=== PATIENT | female | born 1945 | race Caucasian/White ===

== ENCOUNTER 2019-06-05 04:06 | Emergency (ER) | payer OTHER ==
[~2019-06-05] VITALS: Ht 160 cm; Wt 61.7 kg
[2019-06-05 04:06] VITALS: BP 168/84
--- NOTE | 2019-06-05 04:16 | NUR ---
PT TO BED #8
--- NOTE | 2019-06-05 04:18 | NUR ---
73 YEAR OLD FEMALE BIBA FROM HOME, PER EMS PATIENT CALLED FOR ANXIETY, RINGING INTO EARS, AND DIZZYNESS. EMS STATED THEY DID NOT GIVE MEDICATIONS IN TRANSIT. UPON ARRIVAL PATIENT STATES THAT SHE NO LONGER FEELS PRIOR COMPLAINTS, AND FEELS NORMAL. PATIENT AOX4, BREATHING EVEN AND UNLABORED, SKIN WARM AND DRY. BED IN LOWEST POSITION, LOCKED, BED RAIL UPX1. BP 162/71, HR 70, SPO2 95%, RR 12. PMH - HTN, TX, HYPOTHYROIDISM MEDS - STATIN, LEVO, ASA, METOPROLOL ALLERGIES - PCN
[2019-06-05 05:11] VITALS: BP 172/80
--- NOTE | 2019-06-05 05:11 | NUR ---
DISCHARGE DONE BY DR ESCOBAR. Patient discharged with v/s stable. Written and verbal after care instructions ABOUT HYPERTENSION given and explained. Patient alert, oriented and verbalized understanding of instructions. Ambulatory with steady gait. All questions addressed prior to discharge. ID band removed. Patient advised to follow up with PMD. Rx of LISINOPRIL given. Patient educated on indication of medication including possible reaction and side effects. Opportunity to ask questions provided and answered.
== END 2019-06-05 05:11 | disposition home or self-care (01) ==
LOC: MED 04:06
DX: R42 Dizziness and giddiness (principal); I10 Essential (primary) hypertension; E07.9 Disorder of thyroid, unspecified
CPT/HCPCS: 99283

== ENCOUNTER 2022-06-08 20:04 | Emergency (ER) | payer OTHER ==
[~2022-06-08] VITALS: Ht 152.4 cm; Wt 53.5 kg
[2022-06-08 20:04] VITALS: BP 154/68
--- NOTE | 2022-06-08 20:08 | NUR ---
PT [facility] BED 6
--- NOTE | 2022-06-08 20:21 | NUR ---
Dr. Doll examining patient.
--- NOTE | 2022-06-08 20:30 | NUR ---
Patient resting in bed, A/Ox4, chest rise and fall symmetrical, no c/o pain or s/s of distress, patient on monitor.
[2022-06-08 21:18] LABS: BASOPHILS % (AUTO) 0.3 % (0.0-2.0); EOSINOPHILS # (AUTO) 0.1 K/uL (0-0.4); HEMATOCRIT 35.3 % (36-48); HEMOGLOBIN 12.1 g/dL (12.0-16.0); LYMPHOCYTES % (AUTO) 8.8 % (20.5-51.1); MEAN CORPUSCULAR HEMOGLOBIN 30 pg (27-31); MEAN CORPUSCULAR HGB CONC 34 g/dL (33-37); MEAN CORPUSCULAR VOLUME 88.2 fL (80-94); MONOCYTES # (AUTO) 0.8 K/uL (0.8-1.0); MONOCYTES % (AUTO) 7.7 % (1.7-9.3); NEUTROPHILS # (AUTO) 9.1 K/uL (1.8-7.7); NEUTROPHILS % (AUTO) 82.2 % (42.2-75.2); PLATELET COUNT (AUTO) 247 K/uL (140-450); RED CELL DISTRIBUTION WIDTH 12.7 % (11.6-13.7)
[2022-06-08 21:35] LABS: ANION GAP 13.4 (8-16); CARBON DIOXIDE 28.5 mmol/L (21-32); CHLORIDE 87 mmol/L (98-107); CREATININE 0.6 mg/dL (0.6-1.3); GLUCOSE 128 mg/dL (74-106); SODIUM SERUM 126 mmol/L (136-145); UREA NITROGEN, BLOOD 10 mg/dL (7-18)
[2022-06-08 21:49] LABS: MAGNESIUM 1.7 mg/dL (1.8-2.4); THYROID STIMULATING HORMONE 3.84 uIU/mL (0.34-3.74)
[2022-06-08 22:00] LABS: POTASSIUM 2.9 mmol/L (3.5-5.1)
--- NOTE | 2022-06-08 22:00 | NUR ---
Patient resting in bed, A/Ox4, chest rise and fall symmetrical, no c/o pain or s/s of distress, patient on monitor.
[2022-06-08] MEDS ORDERED: POTA10TA70 PO (22:05)
[2022-06-08] MEDS: POTASSIUM CHLORIDE 10 MEQ TABER PO ONE (22:14)
[2022-06-08] MEDS: MAGNESIUM OXIDE 400 MG TAB PO ONE (22:14)
[2022-06-08 22:30] VITALS: BP 133/71
== END 2022-06-08 22:31 | disposition home or self-care (01) ==
LOC: MED 20:04
DX: R00.2 Palpitations (principal); E87.6 Hypokalemia; E83.42 Hypomagnesemia; I10 Essential (primary) hypertension; E03.9 Hypothyroidism, unspecified; Z79.899 Other long term (current) drug therapy
CPT/HCPCS: 36415; 80048; 83735; 84443; 85025; 93005; 99284

== ENCOUNTER 2022-06-21 12:46 | Emergency (ER) | payer OTHER ==
[~2022-06-21] VITALS: Ht 152.4 cm; Wt 53.5 kg
[~2022-06-21 12:46] MED LIST: POTA10TA70 PO
--- NOTE | 2022-06-21 12:49 | NUR ---
PATIENT BIBA TO BED 7.
[2022-06-21 12:56] VITALS: BP 136/90
--- NOTE | 2022-06-21 13:35 | NUR ---
ASSUMED PATIENT CARE, NURSING ASSESSMENT COMPLETED.
[2022-06-21 14:39] LABS: BASOPHILS % (AUTO) 0.6 % (0.0-2.0); EOSINOPHILS # (AUTO) 0.1 K/uL (0-0.4); EOSINOPHILS % (AUTO) 1.3 % (0.0-4.0); HEMATOCRIT 36.9 % (36-48); HEMOGLOBIN 12.6 g/dL (12.0-16.0); LYMPHOCYTES # (AUTO) 1.1 K/uL (2.5-16.5); LYMPHOCYTES % (AUTO) 14.8 % (20.5-51.1); MEAN CORPUSCULAR HEMOGLOBIN 31 pg (27-31); MEAN CORPUSCULAR HGB CONC 34 g/dL (33-37); MEAN CORPUSCULAR VOLUME 89.6 fL (80-94); MONOCYTES # (AUTO) 0.7 K/uL (0.8-1.0); NEUTROPHILS # (AUTO) 5.3 K/uL (1.8-7.7); NEUTROPHILS % (AUTO) 73.3 % (42.2-75.2); PLATELET COUNT (AUTO) 294 K/uL (140-450); RED BLOOD CELL COUNT(AUTO) 4.11 MIL/uL (4.20-5.40); RED CELL DISTRIBUTION WIDTH 12.8 % (11.6-13.7); WHITE BLOOD COUNT (AUTO) 7.3 K/uL (4.8-10.8)
[2022-06-21 14:58] LABS: ANION GAP 4.6 (8-16); CARBON DIOXIDE 31.4 mmol/L (21-32); CHLORIDE 97 mmol/L (98-107); CREATININE 0.8 mg/dL (0.6-1.3); GLUCOSE 101 mg/dL (74-106); SODIUM SERUM 129 mmol/L (136-145); UREA NITROGEN, BLOOD 21 mg/dL (7-18)
--- NOTE | 2022-06-21 16:45 | NUR ---
AWAITING SECOND SET OF TROPONIN BEFORE PATIENT CAN BE DISCHARGED. PATIENT UPDATED ACCORDINGLY.
--- NOTE | 2022-06-21 17:50 | NUR ---
SECOND TROPONIN IS WNL, DR FINK AWARE, PER MD OK TO GO AHEAD DISCHARGE PATIENT.
--- NOTE | 2022-06-21 17:51 | NUR ---
DISPO AND MEDICAL DECISION MAKING, DC HOME WITH AFTERCARE INSTRUCTIONS, AND ADVISEMENT FOR FOLLOW UP WITH PMD. ALL INSTRUCTIONS UNDERSTOOD BY PATIENT WELL, VS WNL, DENIES PALPIATIONS, DENIES CP. DC HOME AMBULATORY, ACCOMPANIED BY NEIGHBOR.
[2022-06-21 17:53] VITALS: BP 118/50
== END 2022-06-21 18:42 | disposition home or self-care (01) ==
LOC: MED 12:46
DX: R00.2 Palpitations (principal); I10 Essential (primary) hypertension; I25.10 Atherosclerotic heart disease of native coronary artery without angina pectoris; Z79.899 Other long term (current) drug therapy
CPT/HCPCS: 36415; 71045; 80048; 84484; 85025; 99285; Q0092

== ENCOUNTER 2022-06-26 20:40 | Emergency (ER) | payer OTHER ==
[~2022-06-26] VITALS: Ht 157.5 cm; Wt 52.2 kg
--- NOTE | 2022-06-26 20:42 | NUR ---
BIBA TO BED #11
[2022-06-26 20:53] VITALS: BP 165/90
--- NOTE | 2022-06-26 21:06 | NUR ---
PATIENT WITH COMPLAINTS OF ELEVATED BLOOD PRESSUR AND HEART RATE. HAS HISTORY OF HTN, FREQUENT ER VISITS, AND SVT. PATIENT REPORTS THAT SHE MAY HAVE STRESS DX: HTN
--- NOTE | 2022-06-26 21:55 | NUR ---
Patient discharged with v/s stable. Written and verbal after care instructions given and explained. Patient verbalized understanding. Ambulatory with steady gait. All questions addressed prior to discharge. Advised to follow up with PMD.
== END 2022-06-26 21:55 | disposition home or self-care (01) ==
LOC: MED 20:40
DX: I10 Essential (primary) hypertension (principal); I25.10 Atherosclerotic heart disease of native coronary artery without angina pectoris; E03.9 Hypothyroidism, unspecified; Z79.899 Other long term (current) drug therapy
CPT/HCPCS: 99283

== ENCOUNTER 2023-02-09 06:45 | Emergency (ER) | payer OTHER ==
[~2023-02-09] VITALS: Ht 160 cm; Wt 59.0 kg
[2023-02-09 06:51] VITALS: BP 117/71; PULSE 97; RESP 20; TEMP 97.9; O2SAT 100
[2023-02-09 07:00] VITALS: BP 144/70; RESP 20; TEMP 97.9; O2SAT 100
[2023-02-09 07:22] LABS: BASOPHILS % (AUTO) 0.6 % (0.0-2.0); EOSINOPHILS % (AUTO) 0.2 % (0.0-4.0); HEMOGLOBIN 13.2 g/dL (12.0-16.0); LYMPHOCYTES # (AUTO) 0.7 K/uL (2.5-16.5); LYMPHOCYTES % (AUTO) 10.1 % (20.5-51.1); MEAN CORPUSCULAR HEMOGLOBIN 31 pg (27-31); MEAN CORPUSCULAR HGB CONC 34 g/dL (33-37); MEAN CORPUSCULAR VOLUME 90.9 fL (80-94); MONOCYTES # (AUTO) 0.5 K/uL (0.8-1.0); MONOCYTES % (AUTO) 7.3 % (1.7-9.3); NEUTROPHILS # (AUTO) 5.9 K/uL (1.8-7.7); NEUTROPHILS % (AUTO) 81.8 % (42.2-75.2); PLATELET COUNT (AUTO) 172 K/uL (140-450); RED BLOOD CELL COUNT(AUTO) 4.29 MIL/uL (4.20-5.40); WHITE BLOOD COUNT (AUTO) 7.2 K/uL (4.8-10.8)
[2023-02-09 07:41] LABS: ALANINE AMINOTRANSFERASE 17 U/L (12-78); ALBUMIN 3.9 g/dL (3.4-5.0); ALKALINE PHOSPHATASE 68 U/L (50-136); ASPARTATE AMINOTRANSFERASE 17 U/L (15-37); CALCIUM 9.2 mg/dL (8.5-10.1); CARBON DIOXIDE 23.1 mmol/L (21-32); CHLORIDE 93 mmol/L (98-107); CREATININE 0.8 mg/dL (0.6-1.3); GLUCOSE 195 mg/dL (74-106); POTASSIUM 3.1 mmol/L (3.5-5.1); SODIUM SERUM 127 mmol/L (136-145); TOTAL BILIRUBIN 0.8 mg/dL (0.0-1.0); UREA NITROGEN, BLOOD 8 mg/dL (7-18)
[2023-02-09 07:52] LABS: MAGNESIUM 1.7 mg/dL (1.8-2.4); PHOSPHORUS 2.9 mg/dL (2.5-4.9); THYROID STIMULATING HORMONE 0.76 uIU/mL (0.34-3.74)
[2023-02-09] MEDS ORDERED: POTASSIUM CHLORIDE 10 MEQ TABER PO ONE ×2 (08:15→09:21)
[2023-02-09] MEDS ORDERED: MAG SULF 2000 MG/WATER PREMIX 50 ML IV ONE (08:15)
[2023-02-09 09:46] VITALS: PULSE 86
== END 2023-02-09 10:24 | disposition home or self-care (01) ==
LOC: MED 06:45
DX: E87.1 Hypo-osmolality and hyponatremia (principal); E87.6 Hypokalemia; E83.42 Hypomagnesemia; I10 Essential (primary) hypertension; E07.9 Disorder of thyroid, unspecified; Z88.0 Allergy status to penicillin; Z79.899 Other long term (current) drug therapy
CPT/HCPCS: 36415; 71045; 80053; 83735; 83880; 84100; 84443; 84484; 85025; 93005; 96360; 96361; 99285; J3475

== ENCOUNTER 2023-03-19 08:47 | Emergency (ER) | payer OTHER ==
[~2023-03-19] VITALS: Ht 157.5 cm; Wt 54.4 kg
[2023-03-19 08:51] VITALS: BP 155/78; PULSE 81; RESP 16; TEMP 98.6; O2SAT 98
[2023-03-19 09:01] VITALS: PULSE 72; O2SAT 99
[2023-03-19 09:15] LABS: BASOPHILS % (AUTO) 0.5 % (0.0-2.0); EOSINOPHILS % (AUTO) 0.2 % (0.0-4.0); HEMATOCRIT 36.4 % (36-48); HEMOGLOBIN 12.2 g/dL (12.0-16.0); LYMPHOCYTES # (AUTO) 0.7 K/uL (2.5-16.5); LYMPHOCYTES % (AUTO) 10.4 % (20.5-51.1); MEAN CORPUSCULAR HEMOGLOBIN 30 pg (27-31); MEAN CORPUSCULAR HGB CONC 34 g/dL (33-37); MEAN CORPUSCULAR VOLUME 90.4 fL (80-94); MONOCYTES # (AUTO) 0.3 K/uL (0.8-1.0); MONOCYTES % (AUTO) 3.8 % (1.7-9.3); NEUTROPHILS # (AUTO) 5.6 K/uL (1.8-7.7); NEUTROPHILS % (AUTO) 85.1 % (42.2-75.2); PLATELET COUNT (AUTO) 218 K/uL (140-450); RED BLOOD CELL COUNT(AUTO) 4.03 MIL/uL (4.20-5.40); RED CELL DISTRIBUTION WIDTH 12.7 % (11.6-13.7); WHITE BLOOD COUNT (AUTO) 6.6 K/uL (4.8-10.8)
[2023-03-19 09:36] LABS: APPEARANCE,URINE CLEAR (CLEAR); BILIRUBIN,URINE NEGATIVE (NEGATIVE); BLOOD, URINE 1+ (NEGATIVE); COLOR,URINE YELLOW (YELLOW); LEUKOCYTE ESTERASE ,URINE NEGATIVE (NEGATIVE); NITRITE, URINE NEGATIVE (NEGATIVE); PROTEIN,URINE NEGATIVE (NEGATIVE); UGLUCOSE NEGATIVE (NEGATIVE); UROBILINOGEN,URINE 0.2 EU/dL (0.2 - 1)
[2023-03-19 09:40] LABS: ALANINE AMINOTRANSFERASE 19 U/L (12-78); ALBUMIN 3.9 g/dL (3.4-5.0); ALKALINE PHOSPHATASE 64 U/L (50-136); ANION GAP 8.6 (8-16); ASPARTATE AMINOTRANSFERASE 20 U/L (15-37); CARBON DIOXIDE 30.2 mmol/L (21-32); CHLORIDE 99 mmol/L (98-107); CREATININE 0.7 mg/dL (0.6-1.3); GLUCOSE 122 mg/dL (74-106); POTASSIUM 3.8 mmol/L (3.5-5.1); SODIUM SERUM 134 mmol/L (136-145); TOTAL BILIRUBIN 0.5 mg/dL (0.0-1.0); TOTAL PROTEIN, SERUM 7.2 g/dL (6.4-8.2); UREA NITROGEN, BLOOD 7 mg/dL (7-18)
[2023-03-19 09:52] LABS: THYROID STIMULATING HORMONE 2.69 uIU/mL (0.34-3.74)
== END 2023-03-19 11:25 | disposition home or self-care (01) ==
LOC: MED 08:47
DX: I11.9 Hypertensive heart disease without heart failure (principal); E03.9 Hypothyroidism, unspecified; Z79.899 Other long term (current) drug therapy
CPT/HCPCS: 36415; 71045; 80053; 81003; 83880; 84443; 84484; 85025; 93005; 99285

== ENCOUNTER 2023-04-10 06:55 | Emergency (ER) | payer OTHER ==
[~2023-04-10] VITALS: Ht 160 cm; Wt 54.4 kg
[2023-04-10 06:55] VITALS: BP 174/76; PULSE 98; RESP 16; TEMP 97; O2SAT 97
[2023-04-10 08:17] LABS: BASOPHILS % (AUTO) 0.5 % (0.0-2.0); EOSINOPHILS # (AUTO) 0.1 K/uL (0-0.4); EOSINOPHILS % (AUTO) 1.1 % (0.0-4.0); HEMOGLOBIN 12.9 g/dL (12.0-16.0); LYMPHOCYTES # (AUTO) 0.8 K/uL (2.5-16.5); LYMPHOCYTES % (AUTO) 15.2 % (20.5-51.1); MEAN CORPUSCULAR HEMOGLOBIN 31 pg (27-31); MEAN CORPUSCULAR HGB CONC 34 g/dL (33-37); MEAN CORPUSCULAR VOLUME 90.1 fL (80-94); MONOCYTES # (AUTO) 0.3 K/uL (0.8-1.0); NEUTROPHILS # (AUTO) 4.2 K/uL (1.8-7.7); NEUTROPHILS % (AUTO) 77.2 % (42.2-75.2); PLATELET COUNT (AUTO) 218 K/uL (140-450); RED BLOOD CELL COUNT(AUTO) 4.22 MIL/uL (4.20-5.40); RED CELL DISTRIBUTION WIDTH 12.8 % (11.6-13.7); WHITE BLOOD COUNT (AUTO) 5.5 K/uL (4.8-10.8)
[2023-04-10 08:39] LABS: ALANINE AMINOTRANSFERASE 22 U/L (12-78); ALBUMIN 3.8 g/dL (3.4-5.0); ALKALINE PHOSPHATASE 64 U/L (50-136); ANION GAP 11.7 (8-16); ASPARTATE AMINOTRANSFERASE 23 U/L (15-37); CALCIUM 8.8 mg/dL (8.5-10.1); CARBON DIOXIDE 28.4 mmol/L (21-32); CHLORIDE 100 mmol/L (98-107); CREATININE 0.7 mg/dL (0.6-1.3); GLUCOSE 104 mg/dL (74-106); POTASSIUM 4.1 mmol/L (3.5-5.1); SODIUM SERUM 136 mmol/L (136-145); TOTAL BILIRUBIN 0.4 mg/dL (0.0-1.0); TOTAL PROTEIN, SERUM 7.2 g/dL (6.4-8.2); UREA NITROGEN, BLOOD 11 mg/dL (7-18)
[2023-04-10 08:40] LABS: MAGNESIUM 1.9 mg/dL (1.8-2.4)
[2023-04-10 10:23] VITALS: BP 164/89; PULSE 80; RESP 16; TEMP 97; O2SAT 98
== END 2023-04-10 10:23 | disposition home or self-care (01) ==
LOC: MED 06:55
DX: I11.9 Hypertensive heart disease without heart failure (principal); E03.9 Hypothyroidism, unspecified; Z88.0 Allergy status to penicillin; Z79.899 Other long term (current) drug therapy
CPT/HCPCS: 36415; 71045; 80053; 83735; 83880; 84484; 85025; 93005; 99285